=== PATIENT | male | born 1985 | race African-American/Black ===

== ENCOUNTER 2021-05-14 06:51 | Emergency (ER) | payer SELFPAY | END 2021-05-14 10:02 | disposition home or self-care (01) | LOC: ERS 06:51 | DX: W10.9XXA Fall (on) (from) unspecified stairs and steps, initial encounter (principal); S29.012A Strain of muscle and tendon of back wall of thorax, initial encounter; F17.210 Nicotine dependence, cigarettes, uncomplicated | CPT/HCPCS: 99283 ==

== ENCOUNTER 2021-10-07 20:42 | Emergency (ER) | payer SELFPAY | END 2021-10-07 21:38 | disposition home or self-care (01) | LOC: ERS 20:42 | DX: G44.209 Tension-type headache, unspecified, not intractable (principal); F17.210 Nicotine dependence, cigarettes, uncomplicated | CPT/HCPCS: 99283 ==